=== PATIENT | female | born 1995 | race Caucasian/White ===

== ENCOUNTER 2021-05-12 13:36 | Inpatient (IN) ==
[~2021-05-12 13:36] MED LIST: *HR* Nalbuphine 10 MG/ML AMPUL IV PRN; Famotidine 20 MG/2 ML VIAL IVP PRN; Metoclopramide 10 MG/2 ML VIAL IVP PRN; Naloxone 0.4 MG/ML INJ IVP PRN; Ondansetron 4 MG/2 ML VIAL IVP PRN
[2021-05-12] MEDS ORDERED: miSOPROStoL 25 MCG TABLET PO ONE (13:37)
[2021-05-12] MEDS ORDERED: Ringers Solution, Lactated 1,000 ML IVC SCH (13:45)
[2021-05-12 14:49] LABS: Basophils % 0.2 %; Eosinophils # 0.1 K/mcL (0.0-0.6); Eosinophils % 0.8 %; Hematocrit 31.7 % (35.3-44.9); Hemoglobin 10.6 g/dL (11.5-15.4); Immature Granulocytes % 0.4 % (0-4); Lymphocytes # 1.3 K/mcL (0.6-4.6); Lymphocytes % 12.3 %; Mean Corpuscular HGB Conc 33.4 g/dL (31.6-35.5); Mean Corpuscular Hemoglobin 29.7 pg (28.0-33.3); Mean Corpuscular Volume 88.8 fL (83.0-100.0); Mean Platelet Volume 10.8 fL (9.4-12.4); Monocytes # 0.5 K/mcL (0.0-1.3); Monocytes % 4.8 %; Neutrophils # 8.7 K/mcL (1.6-8.9); Platelet Count 272 K/mcL (140-400); Red Blood Count 3.57 M/mcL (3.82-4.97); Red Cell Distribution Width 13.2 % (11.5-14.5); Segmented Neutrophils % 81.5 %; White Blood Count 10.6 K/mcL (4.3-11.1)
[2021-05-12 14:57] LABS: Amphetamine Screen,Urine Negative ng/mL (Cutoff=1000); Barbiturate Screen,Urine Negative ng/mL (Cutoff=200); Benzodiazepines Screen,Urine Negative ng/mL (Cutoff=200); Cannabinoid Screen,Urine Negative ng/mL (Cutoff = 50); Cocaine Screen,Urine Negative ng/mL (Cutoff= 300); Opiate Screen,Urine Negative ng/mL (Cutoff=300); Phencyclidine Screen,Urine Negative ng/mL (Cutoff=25)
[2021-05-12] MEDS ORDERED: Ropivacaine/PF 0.2% 20 ML VIAL EP ONE (17:56)
[2021-05-12] MEDS ORDERED: EPHEDrine 50 MG/ML VIAL IVP PRN (17:56)
[2021-05-12] MEDS ORDERED: *HR* FentaNYL (PF) 100 MCG/2 ML VIAL EP ONE (17:56)
[2021-05-12] MEDS ORDERED: Epidural Premix (fent/bupiv) 110 ML EP SCH (18:00)
[2021-05-12] MEDS ORDERED: Oxytocin 20 units/ LR 1000 mL 20 UNIT/1,000 ML BAG IVC ONE (18:17)
[2021-05-12] MEDS ORDERED: Oxytocin 20 units/ LR 1000 mL 20 UNIT/1,000 ML BAG IVC SCH (18:30)
[2021-05-13] MEDS ORDERED: Lanolin 7 G OINT...G. TP PRN (05:38)
[2021-05-13] MEDS ORDERED: Measles/Mumps/Rubella Vacc 0.5 ML VIAL SQ PRN (05:38)
[2021-05-13] MEDS ORDERED: Oxytocin 20 units/ LR 1000 mL 20 UNIT/1,000 ML BAG IVC SCH (05:38)
[2021-05-13] MEDS ORDERED: Benzocaine/Menthol 56 GM AEROSOL SPRAY TP PRN (05:38)
[2021-05-13] MEDS: Ibuprofen 600 MG TABLET PO PRN ×2 (07:24→14:20)
[2021-05-13] MEDS: Prenatal Vit/FA 1 EACH TABLET PO SCH (07:24)
[2021-05-13] MEDS: Acetaminophen 325 MG TABLET PO PRN (17:58)
[2021-05-13 19:27] VITALS: O2SAT 98
[2021-05-14] MEDS: Ibuprofen 600 MG TABLET PO PRN ×2 (06:07→13:01)
[2021-05-14] MEDS: Acetaminophen 325 MG TABLET PO PRN (07:36)
[2021-05-14] MEDS: Prenatal Vit/FA 1 EACH TABLET PO SCH (07:36)
[2021-05-14 07:47] VITALS: BP 109/73; PULSE 79; TEMP 98.3
== END 2021-05-14 13:49 | disposition home or self-care (01) | DRG 807 ==
LOC: 1NENULAB → 1NENUOBS 05-13 05:40
PROVIDERS: ADMIT Advanced Practice Midwife; ATTEND Advanced Practice Midwife